=== PATIENT | male | born 1965 | race Two or more races ===

== ENCOUNTER → 2017-01-03 | Outpatient (CLI) | payer BC ==
--- NOTE | 2017-01-03 14:59 | KCIC ---
PROCEDURE MRI study of the right shoulder without contrast HISTORY Lifting injury. Patient dislocated the right shoulder 2 weeks ago. Right shoulder pain and limited range of motion. TECHNIQUE Noncontrast MRI sequences of the right shoulder were performed in all 3 planes. COMPARISON None available. FINDINGS There is increased signal within the supraspinatus and infraspinatus tendons consistent with tendinosis. There is a complete tear of the lateral aspect of the supraspinatus tendon at the attachment to the footplate. The AP dimension of the defect measures 14 millimeters and the transverse dimension measures 15 millimeters. The tear extends into the lateral aspect of the infraspinatus tendon as well. A delamination intrasubstance tear of the lateral aspect of the infraspinatus tendon and muscle is seen. No retraction of the tendons is seen. A small amount of fluid is seen within the subdeltoid and subacromial bursa as a result of the complete tear. More prominent fluid is seen extending posteriorly and inferiorly between the infraspinatus/teres minor muscles and the deltoid muscle. The subscapularis tendon and transverse ligament are intact. The tendon of the long head of the biceps is intact. No muscle atrophy is evident. There is moderate primary degenerative osteoarthritis and spurring of the AC joint. There is mild spurring of the inferior edge of the acromial process. Type 3 acromial process is seen. These findings may impinge the acromial humeral space. There are mild chronic cystic and erosive changes of the posterior lateral aspect of the humeral head secondary to chronic impingement. The glenoid labrum is intact. No paralabral ganglion cyst or spinoglenoid notch ganglion cyst is seen. Mild degenerative spurring of the glenohumeral joint is seen. Small glenohumeral joint effusion is seen. No loose body is evident. No fracture or marrow infiltrative process is seen. IMPRESSION Complete rotator cuff tear. Electronically signed by: Scotty Drummond MD (Jan 03, 2017 14:58:27)
== END | disposition home or self-care (01) ==
LOC: KCIC MRI 13:12
PROVIDERS: ATTEND Nurse Practitioner Family
DX: M75.121 Complete rotator cuff tear or rupture of right shoulder, not specified as traumatic (principal)
CPT/HCPCS: 73221

== ENCOUNTER → 2017-04-25 | Outpatient (CLI) | payer BC ==
[~2017-04-25] MED LIST: DOCU-109 PO; EMPA25TA PO; HYDR-2762 PO; INSU300I SQ; METF-620 PO
[2017-04-25 11:23] LABS: BASO % 1 % (0-3); EOS % 5 % (0-3); HEMATOCRIT 43.6 % (39.0-53.0); HEMOGLOBIN 15.3 g/dL (13.0-17.5); LYMPH # 1.3 x10^3/uL (1.0-4.8); LYMPH % 25 % (24-48); MEAN CORPUSCULAR HEMOGLOBIN 30 pg (25-35); MEAN CORPUSCULAR HGB CONC 35 g/dL (31-37); MEAN CORPUSCULAR VOLUME 86 fL (79-100); MONO % 8 % (0-9); NEUT % 62 % (31-73); PLATELET COUNT 166 x10^3/uL (140-400); RED BLOOD COUNT 5.08 x10^6/uL (4.30-5.70); RED CELL DISTRIBUTION WIDTH 12.7 % (11.5-14.5); WHITE BLOOD COUNT 5.3 x10^3/uL (4.0-11.0)
--- NOTE | 2017-04-25 11:30 | EKG ---
[facility] [address] [place] [address] Test Date: 2017-04-25 Test Time: 11:33:40 Pat Name: KANE LÓPEZ Department: Room: Gender: Detention Attendant: : 1965 Requested By: BLANCA MAJOR Order Number: [id number] Reading MD: Marie Reed Measurements Intervals [place] Rate: 76 P: 28 GA: 154 QRS: -31 QRSD: 84 T: 58 QT: 356 QTc: 405 Interpretive Statements SINUS RHYTHM NORMAL EKG Electronically Signed On 04-26-2017 20:57:22 CDT by Marie Reed
[2017-04-25 11:32] LABS: CREATININE 0.6 mg/dL (0.7-1.3); GFR 140.9
[2017-04-25 11:44] LABS: PROTHROMBIN TIME PATIENT 12.7 SEC (11.7-14.0)
--- NOTE | 2017-04-25 12:03 | RAD ---
Chest radiograph 04/25/2017 at 1145 hours Indication: Preoperative for rotator cuff repair. Comparison: None available Technique: PA and lateral views of the chest are provided. Findings: Cardiomediastinal silhouette is within normal limits. No pleural effusions, pulmonary vascular congestion or pneumothorax. The lungs are clear. Osseous structures are normal. Impression: No acute cardiopulmonary process.
== END | disposition home or self-care (01) ==
LOC: SURGPAT 10:38
PROVIDERS: ATTEND Orthopaedic Surgery
DX: Z01.818 Encounter for other preprocedural examination (principal); R07.9 Chest pain, unspecified
CPT/HCPCS: 36415; 71020; 80048; 85025; 85610; 85730; 87641; 93005

== ENCOUNTER 2017-05-02 11:10 | Day surgery (SDC) | payer BC ==
[~2017-05-02] VITALS: Ht 175.3 cm; Wt 147.0 kg
[~2017-05-02 11:10] MED LIST changes: +BUPIVACAINE-EPI 0.25%-1:200000 MPF 30 ML VIAL. ONE; +CLINDAMYCIN 600MG PREMIX 50 ML IV PRN; +EPINEPHrine VIAL 30 MG/30 ML VIAL ONE; +IV RINGERS,LACTATED 1000ML 1,000 ML IV SCH; +LIDOCAINE 1% 1 ML SYRINGE. ID PRN; +LIDOCAINE 1% PF 30 ML VIAL. ONE; +MORPHINE SULFATE 2 MG/ML DISP.SYRIN. IV PRN; +ONDANSETRON PF 4 MG/2 ML VIAL. IV PRN; +PROCHLORPERAZINE 10 MG/2 ML VIAL. IV PRN; +fentaNYL PF VIAL 100 MCG/2 ML VIAL IV PRN
[2017-05-02] MEDS ORDERED: SUCCINYLCHOLINE 200 MG/10 ML VIAL. ONE (12:35)
[2017-05-02] MEDS ORDERED: PROPOFOL 20 ML IV ONE ×3 (12:35→14:21)
[2017-05-02] MEDS ORDERED: fentaNYL PF VIAL 250 MCG/5 ML VIAL ONE (12:37)
[2017-05-02] MEDS ORDERED: CLINDAMYCIN 300 MG IV ONE (13:30)
[2017-05-02] MEDS ORDERED: BUPIVACAINE 0.25% 50 ML VIAL. ONE (13:35)
[2017-05-02] MEDS ORDERED: BUPIVACAINE MPF 0.5% 30 ML VIAL. ONE (13:35)
[2017-05-02] MEDS ORDERED: VECURONIUM BOLUS 10 MG VIAL. IV ONE (13:36)
[2017-05-02] MEDS ORDERED: DEXAMETHASONE SOD PHOS 20 MG/5 ML VIAL. ONE (14:21)
[2017-05-02] MEDS ORDERED: PHENYLEPHRINE 10 MG/ML VIAL. ONE ×2 (14:21)
[2017-05-02] MEDS ORDERED: ONDANSETRON PF 4 MG/2 ML VIAL. ONE (14:21)
[2017-05-02] MEDS ORDERED: SEVOFLURANE > 120 MINUTES. IH ONE (14:21)
[2017-05-02] MEDS ORDERED: LIDOCAINE 2% PF Vial for OR 5 ML VIAL. ONE (14:21)
[2017-05-02] MEDS ORDERED: NEOSTIGMINE METHYLSULFATE 5 MG/5 ML SYRINGE. ONE (15:29)
[2017-05-02] MEDS ORDERED: GLYCOPYRROLATE 1 MG/5 ML VIAL. ONE (15:29)
[2017-05-02] MEDS: HYDROmorphone 2 MG/ML VIAL IV PRN ×4 (15:45→16:31)
[2017-05-02] MEDS ORDERED: fentaNYL PF VIAL 100 MCG/2 ML VIAL ONE ×2 (15:46→16:27)
[2017-05-02] MEDS ORDERED: HYDROmorphone 2 MG/ML VIAL ONE (15:46)
[2017-05-02] MEDS: fentaNYL PF VIAL 100 MCG/2 ML VIAL IV PRN ×4 (16:00→16:50)
--- NOTE | 2017-05-02 16:04 | PDOC ---
BRIEF OPERATIVE NOTE Date: May 02, 2017 Pre-Op Diagnosis Right complete rotator cuff tear Post-Op Diagnosis same Procedure Performed Right shoulder arthroscopy and mini open rotator cuff repair Surgeon Jena Arango MD Press Tender [employer] Grenade Mariusz Olivo PA-C Blood Loss 20 Specimens Obtained none Findings none MARIUSZ OLIVO [facility] May 02, 2017 16:04
[2017-05-02] MEDS ORDERED: MEPERIDINE PF 25 MG/ML VIAL. IV PRN (16:45)
[2017-05-02] MEDS ORDERED: MEPERIDINE PF 25 MG/ML VIAL. ONE (16:45)
[2017-05-02] MEDS ORDERED: OXYC5TAB PO (16:54)
[2017-05-02] MEDS ORDERED: SENN-6 PO (16:57)
[2017-05-02] MEDS ORDERED: HYDR25CA PO (16:58)
[2017-05-02] MEDS ORDERED: oxyCODONE IR 5 MG TABLET ONE (17:13)
--- NOTE | 2017-05-02 17:16 | DISCH ---
DISCHARGE INSTRUCTIONS Condition on Discharge Condition on Discharge: Stable Activity After Discharge Activity Instructions for Disc: Activity as tolerated Lifting Instructions after Dis: No heavy lifting Driving Instructions after Dis: Do not drive Weight Bearing Status after Di: Non weight bearing (Right arm) Diet after Discharge Diet after Discharge: Diabetic No Calorie Level Wound Incision Care Wound/Incision Care: Ice to area for comfort, May get incision wet Contacting the DR. after DC Call your doctor for: If at any time there are any signs of infection ( increased swelling, redness, drainage from the incisions, warmth, fever, chills , or severe pain unrelieved by prescribed medication) or if you have any questions or concerns, contact our office at [phone]. MARIUSZ OCONNOR PAC May 02, 2017 17:16
[2017-05-02 18:10] VITALS: BP 128/66
[2017-05-02] MEDS ORDERED: oxyCODONE ER 10 MG TAB.ER.12H PO SCH (21:00)
--- NOTE | 2017-05-06 21:07 | PDOC4 ---
Operative Note Operative Note Preoperative Diagnosis: Right complete rotator cuff tear M75.121 Postoperative Diagnosis: Right complete rotator cuff tear M75.121 Operation Performed: Diagnostic Shoulder arthroscopy with limited debridement, CPT 73396 2. Arthroscopic subacromial debridement, acromioplasty, CPT 78006 3. Mini-open double-row rotator cuff repair, CPT 19337 Surgeon: Blanca Major MD [place] Former: Luís Olivo PA-C Anesthesia: General Estimated Blood Loss: 20 cc Implants: 2 5.5mm [place] QuattroX double-loaded, and one 5.5 mm triple loaded anchor medially, 2 5.5mm Quattro Link Knotless anchors laterally Surgical Indication: The patient is a 51 year old right-hand dominant male with severe right shoulder pain located laterally and anteriorly who has failed conservative treatment and presents now for the above stated procedure after the risks and benefits were explained in the clinic. His surgery has been delayed due to his poorly controlled diabetes that he has gotten better control over. Findings: Large complete rotator cuff tear, retracted to the mid humeral head, scuffing of the acromion, acromial overhang. Description of Procedure: The patient was identified, marked, and the procedure was reconfirmed by myself prior to taking them to the operating room. IV antibiotics were given preoperatively. The patient was positioned appropriately in the beach chair position and underwent adequate general anesthesia. He was a very difficult intubation. The right arm was prepped and draped in a standard surgical fashion. The portals were preinjected with 0.25% marcaine with epi, and 30 cc of .25% Marcaine was placed into the subacromial space. An 11 blade was used to create a posterior portal followed by a rotator interval portal and a diagnostic arthroscopy was performed with the above-said findings. The motorized shaver was introduced through the lateral portal to debride the frayed posterior labrum, the undersurface of the rotator cuff, and the greater tuberosity. This completes the limited debridement, CPT 56107. The arthroscope was then placed in the subacromial space. There was significant retraction and adhesions that were debrided to reveal the complete retracted rotator cuff tear. THe tear included his the entire supraspinatus extending into most of the infraspinatus. A subacromial decompression and partial acromioplasty was accomplished with a madiha prior to making the decision to perform a min-open rotator cuff repair due to the size of the tear and the amount of retraction. The tissue quality of the tendon was moderately robust. This ended the arthroscopic portion of the case, CPT 60113. The shoulder was reprepped. A 3 inch anterolateral incision was made through the skin, and the deltoid muscle was spread down to bone. The axillary nerve was not visualized, but I stayed proximal to 5 cm distal from the acromion to ensure it stayed protected. The deltoid was split at the anterior raphe. The rotator cuff tear was located with a grasper and adhesions were taken down superior and inferior to the tendon to the level of the glenoid. At this time the tendon had very good bounce and was easily reducible to the medial aspect of the footprint. There was a split between the anterior and posterior cuff that was repaired with three sutures in a side to side manner. The footprint was further prepared with a rasp to a bleeding surface. 2 5.5 mm double-loaded and one triple loaded anchor were placed medially just off the articular surface of the humerus, approximately 1 cm apart in the anterior to posterior direction. The limbs of suture were passed through the rotator cuff tendon, from posterior to anterior with a free needle, while the tendon was approximated to the medial footprint with a tag suture. After all the limbs were passed, the pairs of sutures were tied in a mattress fashion reapproximating the medial border of the anatomic foot print for a tension-free repair. The suture tails were divided, and one from each knot was placed into two separate anchors forming a lateral row of 4.5mm Link knotless anchors. At that time the footprint was well established, the repair was solid, and moved as a unit without being overly tensioned. The wound was irrigated thoroughly. The deltoid muscle was repaired with 0 vicryl. There was no defect in the deltoid after repair. The incision was again irrigated and closed in layers with 3-0 monocryl for subcuticular sutures and prineo for the skin. Operative sites were cleaned and dry. Sterile dressings were applied. The patient was placed in a well-padded sling, [facility] awake, alert, and in stable condition BLANCA MAJOR MD May 06, 2017 21:07
== END 2017-05-02 18:37 | disposition home or self-care (01) ==
LOC: SURG 11:10
PROVIDERS: ATTEND Orthopaedic Surgery
DX: M75.121 Complete rotator cuff tear or rupture of right shoulder, not specified as traumatic (principal); K21.9 Gastro-esophageal reflux disease without esophagitis; E11.9 Type 2 diabetes mellitus without complications; Z87.01 Personal history of pneumonia (recurrent); Z86.39 Personal history of other endocrine, nutritional and metabolic disease; Z87.891 Personal history of nicotine dependence; Z88.1 Allergy status to other antibiotic agents
CPT/HCPCS: 23412; 29822; 82962; J0171; J0330; J1100; J1170; J2175; J2405; J2704; J2710; J3010; J3490; C1713; C1782; J2001

== ENCOUNTER → 2018-01-01 | Outpatient (CLI) | payer BC ==
[2018-01-01] MEDS: GADOBUTROL 7.5 MMOL/7.5 ML VIAL INT ART (14:16)
[2018-01-01] MEDS: LIDOCAINE 1% Multi-Dose 20 ML VIAL. ID (14:16)
[2018-01-01] MEDS: IOHEXOL 300 MG/ML 50 ML VIAL. INT ART (14:17)
== END | disposition home or self-care (01) ==
LOC: KCIC 12:48
DX: M25.511 Pain in right shoulder (principal); E11.9 Type 2 diabetes mellitus without complications; G89.29 Other chronic pain; Z87.891 Personal history of nicotine dependence
CPT/HCPCS: 73040; 73222; A9585; Q9967

== ENCOUNTER → 2019-05-14 | Outpatient (CLI) | payer BC ==
[~2019-05-14] MED LIST changes: -BUPIVACAINE-EPI 0.25%-1:200000 MPF 30 ML VIAL. ONE; -CLINDAMYCIN 600MG PREMIX 50 ML IV PRN; -EPINEPHrine VIAL 30 MG/30 ML VIAL ONE; -HYDR-2762 PO; +HYDR-2765 PO; +HYDR25CA PO; -IV RINGERS,LACTATED 1000ML 1,000 ML IV SCH; -LIDOCAINE 1% 1 ML SYRINGE. ID PRN; -LIDOCAINE 1% PF 30 ML VIAL. ONE; -METF-620 PO; +METF10007 PO; -MORPHINE SULFATE 2 MG/ML DISP.SYRIN. IV PRN; -ONDANSETRON PF 4 MG/2 ML VIAL. IV PRN; +OXYC5TAB4 PO; -PROCHLORPERAZINE 10 MG/2 ML VIAL. IV PRN; +SENN-82 PO; -fentaNYL PF VIAL 100 MCG/2 ML VIAL IV PRN
--- NOTE | 2019-05-14 10:48 | RAD ---
CLINICAL HISTORY: Lung nodule INDICATION: Initial evaluation. COMPARISON: None available. TECHNIQUE: Location of scan: [facility] Radiopharmaceutical Dose: 14.68 mCi F-18 FDG intravenous Blood glucose at time of study: 193 FDG uptake time = 60 minutes. FINDINGS/IMPRESSION: Following injection of the radiotracer, the patient was placed in the PET/CT scanner. At that point the patient had claustrophobia and elected to terminate the scan. Radiation Dosimetry: The radiopharmaceutical used for this exam delivers approximately 0.7 mSv/mCi (70 mRem/mCi) Source: ICRP Publication 106
== END | disposition home or self-care (01) ==
LOC: PETSC 08:29
PROVIDERS: ATTEND Family Medicine
DX: R91.1 Solitary pulmonary nodule (principal)
CPT/HCPCS: 78815; A9552

== ENCOUNTER → 2019-05-21 | Outpatient (CLI) | payer BC ==
--- NOTE | 2019-05-21 19:32 | RAD ---
Examination: PET W CT SKULL TO MIDTHIGH History: Pulmonary nodule Comparison/Correlation: None FINDINGS: Net dose 15.29 mCi F-18 FDG was administered intravenously for purposes of PET/CT exam. Blood glucose level at the time of radiotracer administration was 173 mg/dL. Imaging was performed from the skull base to the proximal thighs. Hepatic reference uptake is SUV max of up to 3 . Uptake of radiotracer is unremarkable. No abnormal accumulation to suggest active neoplastic disease. No suspicious infiltrate is no suspicious uptake involving the lung balderas. Incidental note is made of moderate calcification involving the proximal left anterior descending coronary artery. No radiopaque collecting system calculi. Urinary bladder is mostly decompressed. Fatty infiltration of the liver diffusely is seen. IMPRESSION: No abnormal uptake to suggest suspicious process. No suspicious pulmonary nodules identified. PQRS Compliance Statement: One or more of the following individualized dose reduction techniques were utilized for this examination: 1. Automated exposure control 2. Adjustment of the mA and/or kV according to patient size 3. Use of iterative reconstruction technique Electronically signed by: Gene Matos MD (05/21/2019 7:29 PM) [facility]
== END | disposition home or self-care (01) ==
LOC: PETSC 10:46
PROVIDERS: ATTEND Family Medicine
DX: K76.0 Fatty (change of) liver, not elsewhere classified (principal); I25.10 Atherosclerotic heart disease of native coronary artery without angina pectoris
CPT/HCPCS: 78815; A9552